=== PATIENT | male | born 1935 | race African-American/Black ===

== ENCOUNTER 2020-09-27 12:45 | Emergency (ER) | payer OTHER ==
[~2020-09-27] VITALS: Ht 162.6 cm; Wt 72.6 kg
[2020-09-27] MEDS ORDERED: ADALAT CC60 MG PO (12:58)
[2020-09-27] MEDS ORDERED: HYDRODIURIL12.5 MG PO (12:59)
[2020-09-27] MEDS ORDERED: TOPROL XL25 M1 PO (12:59)
[2020-09-27] MEDS ORDERED: SIMVASTATIN5 MG PO (13:00)
[2020-09-27] MEDS ORDERED: VISTARIL25 MG PO (13:47)
== END 2020-09-27 13:58 | disposition home or self-care (01) ==
LOC: ER 12:45
DX: I16.1 Hypertensive emergency (principal); I10 Essential (primary) hypertension

== ENCOUNTER 2021-05-06 09:52 | Outpatient (CLI) | payer OTHER ==
[~2021-05-06 09:52] MED LIST: ADALAT CC60 MG PO; HYDRODIURIL12.5 MG PO; SIMVASTATIN5 MG PO; TOPROL XL25 M1 PO; VISTARIL25 MG PO
== END 2021-05-06 10:05 | disposition home or self-care (01) ==
LOC: RAD 09:52
PROVIDERS: ATTEND Specialist
DX: J45.998 Other asthma (principal); I10 Essential (primary) hypertension; I11.9 Hypertensive heart disease without heart failure

== ENCOUNTER 2022-01-25 05:06 | Emergency (ER) | payer OTHER ==
[~2022-01-25] VITALS: Ht 165.1 cm; Wt 68.0 kg
[2022-01-25] MEDS ORDERED: ADALAT CC60 MG (05:22)
[2022-01-25] MEDS ORDERED: FEROCON CAPSUL1 EACH (05:22)
== END 2022-01-25 09:26 | disposition home or self-care (01) ==
LOC: ER 05:06
DX: J01.90 Acute sinusitis, unspecified (principal); R04.0 Epistaxis

== ENCOUNTER 2022-02-24 10:04 | Outpatient (CLI) | payer OTHER ==
[~2022-02-24 10:04] MED LIST changes: +ADALAT CC60 MG; +FEROCON CAPSUL1 EACH
== END 2022-02-24 10:08 | disposition home or self-care (01) ==
LOC: RAD 10:04
PROVIDERS: ATTEND Specialist
DX: J45.998 Other asthma (principal)

== ENCOUNTER 2023-04-01 09:11 | Outpatient (CLI) | payer OTHER | END 2023-04-01 09:14 | disposition home or self-care (01) | LOC: NUCLEAR 09:11 | PROVIDERS: ATTEND Specialist | DX: I82.409 Acute embolism and thrombosis of unspecified deep veins of unspecified lower extremity (principal) ==

== ENCOUNTER 2023-04-18 16:59 | Inpatient (IN) | payer OTHER ==
[~2023-04-18] VITALS: Ht 167.6 cm; Wt 61.2 kg
--- NOTE | 2023-04-18 17:22 | NUR ---
PATIENT IS RECIEVED SAYING THAT HE HAS HAD A BODY-WIDE ALLERGIC REACTION THAT STARTS FROM HIS LEGS.
--- NOTE | 2023-04-18 18:51 | NUR ---
PTE MASCULINO ALERTA Y ORIENTADO X3 EVALUADO POR DR CAVANAUGH. SE ORIENTA SOBRE TX MEDICO. SE COLECTAN MUESTRAS DE LAB CON MEDIDAS ASEPTICAS Y SE ADMINISTRA MEDICAMENTO AGAPITO ORDENADO. SE UBICA A PTE EN PASILLO.
== END 2023-04-23 14:31 | disposition home or self-care (01) | DRG 982 ==
LOC: ER 16:59 → MEDI 20:56 → SEC-K 20:56 → MEDI 22:44
PROVIDERS: ADMIT Specialist; ATTEND Specialist
PROC: B54DZZZ Ultrasonography of Bilateral Lower Extremity Veins (ICD-10-PCS; 2023-04-18)
PROC: 0JDQ0ZZ Extraction of Right Foot Subcutaneous Tissue and Fascia, Open Approach (ICD-10-PCS; principal; 2023-04-19)
DX: E11.621 Type 2 diabetes mellitus with foot ulcer (principal); L97.319 Non-pressure chronic ulcer of right ankle with unspecified severity; I83.013 Varicose veins of right lower extremity with ulcer of ankle; L08.89 Other specified local infections of the skin and subcutaneous tissue; E11.51 Type 2 diabetes mellitus with diabetic peripheral angiopathy without gangrene; N17.8 Other acute kidney failure; I10 Essential (primary) hypertension; Z20.822 Contact with and (suspected) exposure to COVID-19